=== PATIENT | male | born 2005 | race Caucasian/White ===

== ENCOUNTER 2024-02-02 20:45 | Emergency (ER) | payer SELFPAY ==
[2024-02-02 20:56] VITALS: BP 124/79; PULSE 90; RESP 20; TEMP 98.6; BMI 20.3
== END 2024-02-02 21:31 | disposition home or self-care (01) ==
LOC: JERFT 20:45
DX: S10.93XA Contusion of unspecified part of neck, initial encounter (principal); H11.31 Conjunctival hemorrhage, right eye; Y04.8XXA Assault by other bodily force, initial encounter
CPT/HCPCS: 99283-25